=== PATIENT | female | born 1980 ===

== ENCOUNTER → 2017-02-17 | Outpatient (CLI) | payer MEDICAID | END | disposition home or self-care (01) | LOC: MW.CHFP 14:25 | PROVIDERS: ATTEND Physician Assistant | DX: E05.90 Thyrotoxicosis, unspecified without thyrotoxic crisis or storm (principal) | CPT/HCPCS: 36415; 84443; 85025 ==

== ENCOUNTER → 2017-02-21 | Outpatient (CLI) | payer MEDICAID, OTHER | LOC: MW.CHFP 11:35 | PROVIDERS: ATTEND Physician Assistant | DX: R94.6 Abnormal results of thyroid function studies (principal) | CPT/HCPCS: 36415; 84436; 84481 ==

== ENCOUNTER → 2017-03-26 | Outpatient (CLI) | payer MEDICAID | LOC: MW.CHFP 10:55 | PROVIDERS: ATTEND Physician Assistant | DX: R82.90 Unspecified abnormal findings in urine (principal) | CPT/HCPCS: 81001; 87086 ==